=== PATIENT | female | born 1945 | race Caucasian/White ===

== ENCOUNTER 2019-04-11 14:02 | Emergency (ER) | payer OTHER ==
[~2019-04-11] VITALS: Ht 165.1 cm; Wt 95.3 kg
[2019-04-11] MEDS ORDERED: ALBUTEROL SULFA10 GM PO (14:18)
[2019-04-11] MEDS ORDERED: ADVAIR HFA 230M12 GM INH (14:18)
[2019-04-11] MEDS ORDERED: LIPITOR10 MG PO (14:18)
[2019-04-11] MEDS ORDERED: SINGULAIR 10 MG10 M1 PO (14:18)
[2019-04-11] MEDS ORDERED: PROCARDIA XL30 MG PO (14:18)
[2019-04-11] MEDS ORDERED: ZOLOFT100 MG PO (14:19)
[2019-04-11] MEDS ORDERED: VENTOLIN HFA 1818 GM INH (14:19)
[2019-04-11 14:58] LABS: ABSOLUTE BASOPHILS 0.1 thou/uL (0.0-0.2); ABSOLUTE EOSINOPHILS 0.3 thou/uL (0.0-0.7); ABSOLUTE LYMPHOCYTES 1.6 thou/uL (0.8-5.3); ABSOLUTE MONOCYTES 0.4 thou/uL (0.0-1.2); ABSOLUTE NEUTROPHILS 3.4 thou/uL (1.6-8.1); BASOPHILS 1.2 %; EOSINOPHILS 4.9 %; HEMOGLOBIN 13.9 gm/dL (12.0-15.0); MCH 27.7 pg (26.0-34.0); MCV 81.5 fL (80.0-100.0); MONOCYTES 7.3 %; MPV 9.7 fl. (7.2-11.1); NUCLEATED RBCS 0 /100WBC; PLATELET COUNT* 252 thou/uL (150-400); POLYS 59.6 %; RBC 5.03 mil/uL (4.20-5.00); RDW-CV 13.4 % (10.5-14.5); WBC 5.8 thou/uL (4.0-11.0)
[2019-04-11 15:11] LABS: CALCIUM 9.2 mg/dL (8.5-10.1); CREATININE 0.8 mg/dL (0.6-1.3); POTASSIUM 4.1 mmol/L (3.5-5.1)
[2019-04-11 15:16] LABS: ALBUMIN 3.9 g/dL (3.4-5.0); MAGNESIUM 2.4 mg/dL (1.8-2.4); TOTAL BILIRUBIN 0.6 mg/dL (<0.1-1.0); TOTAL PROTEIN 7.1 g/dL (6.4-8.2)
[2019-04-11 16:56] VITALS: BP 145/99
== END 2019-04-11 16:56 | disposition home or self-care (01) ==
LOC: M.ERS 14:02
PROVIDERS: Nurse Practitioner Family
DX: M17.0 Bilateral primary osteoarthritis of knee (principal); I10 Essential (primary) hypertension; J45.909 Unspecified asthma, uncomplicated